=== PATIENT | female | born 1955 | race Caucasian/White ===

== ENCOUNTER 2016-05-19 17:18 | Emergency (ER) | payer OTHER | END 2016-05-19 20:45 | disposition home or self-care (01) | LOC: ER1 17:18 | DX: G43.109 Migraine with aura, not intractable, without status migrainosus (principal); Z79.899 Other long term (current) drug therapy | CPT/HCPCS: 96374; 96375; 99283; J1100; J1200; J2765 ==

== ENCOUNTER 2016-06-04 16:24 | Emergency (ER) | payer OTHER ==
[2016-06-04 19:01] LABS: HEMOGLOBIN 9.1 gm/dl (12.3-15.3); RED BLOOD COUNT 4.07 M/UL (4.00-5.10); WHITE BLOOD COUNT 9.4 K/UL (4.5-11.0)
[2016-06-04 19:07] LABS: BUN/CREATININE RATIO 20 (0-10)
== END 2016-06-04 22:55 | disposition home or self-care (01) ==
LOC: ER1 16:24
PROVIDERS: Student in an Organized Health Care Education/Training Program
DX: K59.00 Constipation, unspecified (principal); M19.90 Unspecified osteoarthritis, unspecified site; J44.9 Chronic obstructive pulmonary disease, unspecified; I21.3 ST elevation (STEMI) myocardial infarction of unspecified site; E04.9 Nontoxic goiter, unspecified; I27.2 Other secondary pulmonary hypertension; L98.499 Non-pressure chronic ulcer of skin of other sites with unspecified severity; G62.9 Polyneuropathy, unspecified; D64.9 Anemia, unspecified; Z76.5 Malingerer [conscious simulation]
CPT/HCPCS: 71010; 80053; 81001; 82550; 82553; 83690; 83874; 83880; 84484; 85025; 85379; 85610; 85730; 87086; 93005; 96361; 96374; 99284; J2270; J2405; J7050; Q9963